=== PATIENT | female | born 1940 | race Caucasian/White ===

== ENCOUNTER 2020-06-09 06:35 | Inpatient (IN) ==
--- NOTE | 2020-05-05 15:25 | PAT Medication Instructions ---
Medication Instructions Date of Service May 05, 2020 Home Medications B-complex with vitamin C [Nephro-Dianna] 1 tab PO QAM apixaban [Eliquis] 2.5 mg PO BID cholecalciferol (vitamin D3) [Vitamin D3] 25 mcg PO QAM cinacalcet [Sensipar] 60 mg PO QAM colesevelam [WelChol] 1,250 mg PO BID labetalol 200 mg PO BID levothyroxine 125 mcg PO QAM nitroglycerin [Nitrostat] 0.4 mg BUCCAL UD ondansetron HCl [Zofran] 4 mg PO Q6H PRN pantoprazole [Protonix] 40 mg PO QAM sevelamer carbonate [Renvela] 2,400 mg PO BIDM sucroferric oxyhydroxide 500 mg PO UD temazepam 15 mg PO HS PRN Continue as directed nitroglycerin [Nitrostat] 0.4 mg BUCCAL UD (if needed) ASK your prescriber and surgeon apixaban [Eliquis] 2.5 mg PO BID STOP taking 48 hours before surgery colesevelam [WelChol] 1,250 mg PO BID DO NOT take the morning of surgery B-complex with vitamin C [Nephro-Dianna] 1 tab PO QAM cholecalciferol (vitamin D3) [Vitamin D3] 25 mcg PO QAM cinacalcet [Sensipar] 60 mg PO QAM sevelamer carbonate [Renvela] 2,400 mg PO BIDM sucroferric oxyhydroxide 500 mg PO UD Take morning of surgery With a small sip of water, OTHERWISE NOTHING TO EAT OR DRINK AFTER MIDNIGHT: labetalol 200 mg PO BID levothyroxine 125 mcg PO QAM ondansetron HCl [Zofran] 4 mg PO Q6H PRN (if needed) pantoprazole [Protonix] 40 mg PO QAM Take evening before surgery labetalol 200 mg PO BID ondansetron HCl [Zofran] 4 mg PO Q6H PRN (if needed) sevelamer carbonate [Renvela] 2,400 mg PO BIDM sucroferric oxyhydroxide 500 mg PO UD temazepam 15 mg PO HS PRN (if needed) Other Notes If you have any questions please call us at [phone] or [phone] or [phone] or [phone]
--- NOTE | 2020-05-06 13:38 | Anesthesiology Consultation ---
Date of Service May 06, 2020 Assessment & Plan (1) Encounter for pre-operative examination: Chart Review Chart Review: Pending: Refer to Additional Notes / Consult section (pending pacer check, possible cath report, carotid studies, most recent cardio note, 05/12 stress test and preop Covid testing ) and Patient seen in Pre Admission Testing Awaiting most recent pacer check and cath (from cardio office), carotid studies (Dr. Maurice office), most recent cardio note, and stress test scheduled 05/12 -Check PRP stat AM of surgery secondary to dialysis Novocaine allergy- surgeon's office was made aware. OR office also made aware via OR sheet Per PAT appt on 05/04/20, patient resides in [facility]. No recent travel. Uses PPE. No known Covid positive contacts or Covid related symptoms. Pt scheduled 05/10/20 for Covid testing. Educated on importance of self quarantining, social distancing and wearing mask in public both for the patient and household contacts. Teaching & Discussion Pre-Anesthesia Teaching/Discussion Notes: Instructed NPO after midnight before surgery,except medications with 15 cc of water. Medication instructions provided according to the PAT guidelines. History Surgery Operation Date: 05/14/20 07:30 Proposed Procedures p Percutaneous Endovascular Aneurysm Repair - Enrrique Maurice MD Height/Weight Height: 5 ft 2 in Weight: 53.4 kg Allergies Allergy/AdvReac Type Severity Reaction Status Date / Time amlodipine [From Norvasc] Allergy Mild leg and Verified 05/06/20 13:48 hand swelling clonidine Allergy Mild hallucinati Verified 05/04/20 13:24 on niacin Allergy Mild Hives Verified 05/04/20 13:14 procaine [From Novocain] Allergy Mild increase Verified 05/04/20 13:24 blood pressure and heart races Zowvqdm-Tlb-Eiq Reductase Allergy Mild pain in Verified 05/04/20 13:14 Inhibitor muscles Sulfa (Sulfonamide Allergy Mild Nausea Verified 05/04/20 13:14 Antibiotics) promethazine [From Phenergan] Allergy Unknown Confusion/word Verified 05/06/20 13:48 slurring contrast dye Allergy Mild chest pain Uncoded 05/04/20 13:14 and sob, rapid heart beat Medications Home Medications Medication Instructions Recorded Confirmed Last Taken B-complex with vitamin C 1 tab PO QAM 05/04/20 05/04/20 Unknown [Nephro-Dianna] apixaban [Eliquis] 2.5 mg PO BID 05/04/20 05/04/20 Unknown cholecalciferol (vitamin D3) 25 mcg PO QAM 05/04/20 05/04/20 Unknown [Vitamin D3] cinacalcet [Sensipar] 60 mg PO QAM 05/04/20 05/04/20 Unknown colesevelam [WelChol] 1,250 mg PO BID 05/04/20 05/04/20 Unknown labetalol 200 mg PO BID 05/04/20 05/04/20 Unknown levothyroxine 125 mcg PO QAM 05/04/20 05/04/20 Unknown nitroglycerin [Nitrostat] 0.4 mg BUCCAL UD 05/04/20 05/04/20 Unknown ondansetron HCl [Zofran] 4 mg PO Q6H PRN 05/04/20 05/04/20 Unknown pantoprazole [Protonix] 40 mg PO QAM 05/04/20 05/04/20 Unknown sertraline [Zoloft] 50 mg PO QAM 05/04/20 05/04/20 Unknown sevelamer carbonate [Renvela] 2,400 mg PO BIDM 05/04/20 05/04/20 Unknown sucroferric oxyhydroxide 500 mg PO UD 05/04/20 05/04/20 Unknown temazepam 15 mg PO HS PRN 05/04/20 05/04/20 Unknown Past Medical History Medical History (Updated 05/06/20 @ 16:19 by Danae Nye PA-C) Aortic valve stenosis Per 05/2018 ECHO- mild Atrial fibrillation Began after CABG surgery- on Eliquis currently CAD (coronary artery disease) S/p 3 vessel CABG in 2017, later had 2 stents in 2018 GERD (gastroesophageal reflux disease) Well controlled and stable- unless meds taken on empty stomach History of pacemaker Placed after 3 vessel CABG in 2017 Hyperlipidemia Hypertension Hypothyroidism Kidney failure on dialysis (PD) every night at home Osteoarthritis TIA (transient ischemic attack) Found tia x 3 on brain scan in 2018 after fall- no issues recently Exercise / Class Metabolic Activity III < 4 Walking/Shop/Light housework (mild SOB but no chest pain with flat surface ambulation- decreased activity since recent hip fracture/BEAN (Mar 2020)) Past Surgical History Surgical History History of coronary artery bypass graft x 3 vessel 2017 went into cardiac arrest and needed pacemaker - dea jiménez, follow with dr islas History of hip replacement 03/2020 - left History of intestinal surgery 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 follow with Dr Keyes in [place] Past Anesthesia History No Hx of Anesthesia Complications (slow to wake- no hx of reintubation or ICU stay with exception to CABG sx ) and No Family Hx of Anesthesia Complications (none known ) History of PONV No Hx of Motion Sickness and History of PONV (many years ago ) Social History Smoking Status: Never smoker Do You Dip or Chew Tobacco: No Hx Alcohol Use: No Hx Substance Use: No substance use type: does not use Review of Systems Chest pressure with recent chest CT scan (scheduled for stress test 05/12/20) Occ snoring- no significant witnessed apnea. No hx of sleep study Hx of blood transfusion secondary to surgery Patient denies chest pain, shortness of breath at rest, cough, wheezing, palpitations. No hx of seizures. No hx of blood clots. Physical Exam Vital Signs VITALS BP 141/63 P 64 TEMP 98.4 [id number]% RESP 16 Constitutional no acute distress ENMT Mouth: no TMJ clicking Thyromental Distance: > or= 3.5 Finger Breadths (3.5) Mallampati Class: III Crowns to top front teeth and right side top teeth Denies missing teeth Neck + limited neck extension (moderate to severe ) Respiratory normal respiratory effort; no respiratory distress Auscultation: lungs clear to auscultation bilaterally; no wheezes Cardiovascular Rate/Rhythm: regular rate and regular rhythm Heart Sounds: + murmur (IV/ murmur ) Vessels: + carotid bruit (bilateral carotid bruits vs radiation murmur ) Musculoskeletal Spine: no pain with cervical ROM Neurologic moves all extremities Psychiatric Orientation: alert Testing Laboratory Results 05/06/20 14:15 05/06/20 14:15 PT 11.3 Seconds (9.0-12.0) 05/06/20 14:15 INR 1.1 (0.9-1.1) 05/06/20 14:15 APTT 29.9 Seconds (21.0-31.0) 05/06/20 14:15 Blood Type A Positive 05/06/20 14:15 Antibody Screen NEGATIVE 05/06/20 14:15 Anemia- chronic and stable from previous labs Chronic hypokalemia- relatively stable from previous- on daily PD Electrocardiogram Date: 05/06/20 Atrial paced rhythm with prolonged AV conduction at 63 bpm. Chest X-Ray Date: 04/30/20 Stable chest- stable left basilar streaky opacity. Stable findings consistent with prior median sternotomy and CABG. Right upper chest pacemaker and leads are stable. No pleural effusion. Calcified breast implants. Echocardiogram Date: 05/18/18 EF: 61% Mild basal inferior and infero-septal HK. Degenerative aortic valve disease with mild stenosis- mean gradient 10mmHg. LIAT= 1.28cm2. Peaked AV velocity 2.07 m/s Intracardiac electrode in RA and RV. "Pseudo-normalization" of mitral inflow suggests diastolic dysfunction and/or volume overload. Mild TR with moderate pulm HTN, RVSP 43mmHg. Stress Test Date: 11/22/15 Type: nuclear No EKG criteria for ischemia. Myocardial perfusion imaging is normal. Myocardial ischemia and infarct is absent. EF= 69%. Wall motion is normal.
[2020-05-06 15:01] LABS: Basophils # (auto) 0.03 K/uL (0-0.2); Basophils % (auto) 0.5 %; Eosinophils # (auto) 0.16 K/uL (0-0.5); Eosinophils % (auto) 2.6 %; Hemoglobin 8.7 g/dL (12.0-16.0); Immature Granulocytes # (auto) 0.03 K/uL (0.00-0.02); Immature Granulocytes % (auto) 0.5 %; Lymphocytes # (auto) 0.51 K/uL (1.2-3.4); Lymphocytes % (auto) 8.4 %; Mean Corpuscular Hemoglobin 30.6 pg (25-34); Mean Corpuscular Hgb Conc 33.5 g/dL (32-36); Mean Corpuscular Volume 91.5 fL (80-100); Mean Platelet Volume 9.2 fL (7.4-10.4); Monocytes # (auto) 0.52 K/uL (0.11-0.59); Monocytes % (auto) 8.6 %; Neutrophils # (auto) 4.79 K/uL (1.4-6.5); Neutrophils % (auto) 79.4 %; Platelet Count 220 K/uL (130-400); RDW Coefficient of Variation 13.3 % (11.5-14.5); RDW Standard Deviation 44.6 fL (36.4-46.3); Red Blood Count 2.84 M/uL (4.2-5.4); White Blood Count 6.04 K/uL (4.8-10.8)
[2020-05-06 15:18] LABS: INR 1.1 (0.9-1.1); Partial Thromboplastin Ratio 1.1; Partial Thromboplastin Time 29.9 Seconds (21.0-31.0); Prothrombin Time 11.3 Seconds (9.0-12.0)
[2020-05-06 15:39] LABS: BUN Creatinine Ratio 4.4 (10-20); Creatinine Clr Calc Pharmacy 3.7 ml/min; Est GFR (African American) 4.1; Est GFR (Non-African American) 3.5; Potassium 2.9 mmol/L (3.5-5.1)
--- NOTE | 2020-05-07 06:13 | Electrocardiogram Report ---
Test Reason : Blood Pressure : / mmHG Vent. Rate : 063 BPM Atrial Rate : 064 BPM P-R Int : 254 ms QRS Dur : 094 ms QT Int : 470 ms P-R-T Axes : 074 039 083 degrees QTc Int : 480 ms Atrial-paced rhythm with prolonged AV conduction Abnormal ECG No previous ECGs available Confirmed by Duy Duffy ([id number]) on 05/07/2020 6:12:29 AM Referred By: Enrrique Maurice Confirmed By:Duy Duffy
[~2020-06-09 06:35] MED LIST: HYDROCORTISONE SOD SUCCINATE 100 MG/2 ML VIAL IV SCH; SODIUM CHLORIDE 0.9% 1000ML 1,000 ML IV SCH; ceFAZolin 1000MG 1,000 MG/7.5 ML SYR IV SCH
--- NOTE | 2020-06-09 07:24 | History & Physical Report ---
Date of Service June 09, 2020 Assessment & Plan (1) AAA (abdominal aortic aneurysm) without rupture: Patient admitted for PEVAR of her AAA. I have discussed the risks options and benefits of the procedure with the patient. The patient understands the risks options and benefits and agrees to the procedure. History of Present Illness Chief Complaint: AAA Primary Care Provider: Jorge Keyes MD As you know she is an 80-year-old white female on peritoneal dialysis. She was found to have a abdominal aortic aneurysm which is enlarged over the last 2 years. Ultrasound showed it to be 5.3. She had a CT angiogram done at [facility]. This was read as 4.8 cm abdominal aortic aneurysm however when looking at the films and doing the measurements the largest diameter of the sac is actually 5.3 x 5.3. Physical Exam Allergies Allergy/AdvReac Type Severity Reaction Status Date / Time amlodipine [From Norvasc] Allergy Mild leg and Verified 06/09/20 07:08 hand swelling clonidine Allergy Mild hallucinati Verified 06/09/20 07:08 on niacin Allergy Mild Hives Verified 06/09/20 07:08 procaine [From Novocain] Allergy Mild increase Verified 06/09/20 07:08 blood pressure and heart races Uxriqsm-Sdo-Zrt Reductase Allergy Mild pain in Verified 06/09/20 07:08 Inhibitor muscles Sulfa (Sulfonamide Allergy Mild Nausea Verified 06/09/20 07:08 Antibiotics) promethazine [From Phenergan] Allergy Unknown Confusion/word Verified 06/09/20 07:08 slurring contrast dye Allergy Mild chest pain Uncoded 06/09/20 07:08 and sob, rapid heart beat Home Medications Home Medications Medication Instructions Recorded Confirmed Type B-complex with vitamin C 1 tab PO QAM 05/04/20 05/04/20 History [Nephro-Dianna] apixaban [Eliquis] 2.5 mg PO BID 05/04/20 06/09/20 History cholecalciferol (vitamin D3) 25 mcg PO QAM 05/04/20 05/04/20 History [Vitamin D3] cinacalcet [Sensipar] 60 mg PO QAM 05/04/20 06/09/20 History colesevelam [WelChol] 1,250 mg PO BID 05/04/20 06/09/20 History labetalol 200 mg PO BID 05/04/20 05/04/20 History levothyroxine 125 mcg PO QAM 05/04/20 05/04/20 History nitroglycerin [Nitrostat] 0.4 mg BUCCAL UD 05/04/20 05/04/20 History ondansetron HCl [Zofran] 4 mg PO Q6H PRN 05/04/20 05/04/20 History pantoprazole [Protonix] 40 mg PO QAM 05/04/20 05/04/20 History sertraline [Zoloft] 50 mg PO QAM 05/04/20 06/09/20 History sevelamer carbonate [Renvela] 2,400 mg PO BIDM 05/04/20 06/09/20 History sucroferric oxyhydroxide 500 mg PO UD 05/04/20 06/09/20 History temazepam 15 mg PO HS PRN 05/04/20 06/09/20 History Past Med/Surg History Medical History Aortic valve stenosis Per 05/2018 ECHO- mild Atrial fibrillation Began after CABG surgery- on Eliquis currently CAD (coronary artery disease) S/p 3 vessel CABG in 2017, later had 2 stents in 2018 GERD (gastroesophageal reflux disease) Well controlled and stable- unless meds taken on empty stomach History of pacemaker Placed after 3 vessel CABG in 2016 Hyperlipidemia Hypertension Hypothyroidism Kidney failure on dialysis (PD) every night at home Osteoarthritis TIA (transient ischemic attack) Found tia x 3 on brain scan in 2018 after fall- no issues recently Surgical History History of coronary artery bypass graft x 3 vessel 2017 went into cardiac arrest and needed pacemaker - dea jiménez, follow with dr islas History of hip replacement 03/2020 - left History of intestinal surgery 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 follow with Dr Keyes in [place] Social History Smoking Status: Never smoker Second Hand Exposure: No; Do You Dip or Chew Tobacco: No; Tobacco Cessation Education Requested by Patient: No Hx Alcohol Use: No Hx Substance Use: No Preferred Language: Polish Communication Ability: Effective Golf Club Repairer Required: No Beliefs That Will Affect Care: None Current Living Situation: Significant Other Other Information That Helps Us Care for You: No Feels Safe at Home: Yes Safety Concerns: Feels Safe At This Time Assistive Devices: Glasses Review of Systems All systems reviewed & are unremarkable except as noted in HPI & below Physical Exam Physical Exam: She is well-appearing, well-nourished, in no acute distress. She is breathing comfortably on room air. Lungs are clear. Her heart has a regular rate and rythm. Her abdomen is soft, nontender and nondistended. There is a palpable pulsatile abdominal mass. This is nontender. There is a PD catheter in place. Her bilateral femoral pulses are palpable. Her bilateral dorsalis pedis pulses are palpable bilaterally. Her motor and sensory examinations of the bilateral upper and lower extremities are grossly intact.
[2020-06-09 07:51] LABS: BUN Creatinine Ratio 3.8 (10-20); Calcium 8.3 mg/dl (8.5-10.1); Creatinine Clr Calc Pharmacy 4.1 ml/min; Est GFR (African American) 4.7; Potassium 2.7 mmol/L (3.5-5.1)
[2020-06-09] MEDS ORDERED: MIDAZOLAM HCL 1 MG/ML 2ML VIAL ONE (07:57)
[2020-06-09] MEDS ORDERED: fentaNYL citrate 100 MCG/2 ML VIAL ONE (07:57)
[2020-06-09] MEDS ORDERED: HEPARIN SOD (PORCINE) 1000 UNIT/ML 10 ML VIAL ONE (07:57)
[2020-06-09] MEDS ORDERED: LIDOCAINE HCL 2% 2 ML VIAL/AMP(20MG/ML) INFIL ONE (07:57)
[2020-06-09] MEDS ORDERED: CISATRACURIUM BESYLATE IV SOLN 2 MG/ML 10 ML VIAL IV ONE (07:57)
[2020-06-09] MEDS ORDERED: PROPOFOL IV EMULSION 10 MG/ML 20 ML VIAL IV ONE ×3 (07:57→10:45)
[2020-06-09] MEDS ORDERED: ALBUMIN HUMAN 5% 12.5 GM/250 ML VIAL IV ONE (08:21)
[2020-06-09] MEDS: POTASSIUM CHLORIDE / WTR 10 MEQ/100 ML PLCT IV SCH ×4 (08:22→18:42)
[2020-06-09] MEDS ORDERED: LIDOCAINE HCL 1% 20 ML VIAL ONE (08:51)
[2020-06-09] MEDS ORDERED: KETAMINE 50 MG/5 ML SYRINGE ONE (09:05)
[2020-06-09] MEDS ORDERED: ARISTA ABSORBABLE HEMOSTAT 3GM TOP ONE (10:13)
[2020-06-09] MEDS ORDERED: VISIPAQUE IV PRN (10:17)
--- NOTE | 2020-06-09 10:39 | Post Operative Brief Note ---
Immediate Post Op Note v1 Date of Surgery June 09, 2020 Pre & Post Diagnosis Operation Date: 05/14/20 08:50 <No data on this case meets the specified criteria> Operation Date: 06/09/20 08:00 <No data on this case meets the specified criteria> Operation Date: 06/09/20 08:00 Pre-Op Diagnosis: Abdominal Aortic Aneurysm Post-Op Diagnosis: Abdominal Aortic Aneurysm I identified the patient and participated in the time-out.: Yes Procedure Operation Date: 05/14/20 08:50 <No data on this case meets the specified criteria> Operation Date: 06/09/20 08:00 <No data on this case meets the specified criteria> Operation Date: 06/09/20 08:00 Actual Procedures p Percutaneous Endovascular Aneurysm Repair, Bilateral Percutaneous Groin Acess(Bilateral) - Enrrique Maurice MD Surgeon Enrrique Maurice MD Training Associate Hallie,PAC Estimated Blood Loss 30 Findings Consistent with Post-Op Diagnosis Anesthesia Type MAC Complications none Disposition Accompanied Patient To Recovery: No Disposition: Recovery Room
[2020-06-09] MEDS ORDERED: NITROGLYCERIN 5 MG/ML 10 ML VIAL ONE (10:46)
[2020-06-09 10:51] LABS: iSTAT Creatinine 8.1 mg/dl (0.6-1.3); iSTAT Hemoglobin 8.5 g/dl (12.0-16.0); iSTAT Ionized Calcium 1.03 mmol/l (1.12-1.32); iSTAT Potassium 3.2 mmol/L (3.3-5.0)
[2020-06-09] MEDS ORDERED: ATROPINE SULFATE 0.1 MG/ML 10ML SYR IV PRN (10:56)
[2020-06-09] MEDS ORDERED: ONDANSETRON INJ 2 MG/ML 2 ML VIAL IV PRN (10:56)
[2020-06-09] MEDS ORDERED: ePHEDrine sulfate 50 MG/ML AMP IV PRN (10:56)
[2020-06-09] MEDS ORDERED: fentaNYL citrate 100 MCG/2 ML VIAL IV PRN (10:56)
[2020-06-09] MEDS ORDERED: FLUMAZENIL 0.1 MG/1 ML 10 ML VIAL IV PRN (10:56)
[2020-06-09] MEDS ORDERED: NALOXONE HCL 0.4 MG/1 ML VIAL/CARP IV PRN (10:56)
[2020-06-09] MEDS ORDERED: LABETALOL HCL IV 5 MG/ML 20ML IV PRN (10:56)
[2020-06-09 11:14] LABS: Basophils # (auto) 0.02 K/uL (0-0.2); Basophils % (auto) 0.3 %; Eosinophils # (auto) 0.02 K/uL (0-0.5); Eosinophils % (auto) 0.3 %; Hematocrit (blood only) 28.8 % (37-47); Hemoglobin 9.3 g/dL (12.0-16.0); Immature Granulocytes # (auto) 0.03 K/uL (0.00-0.02); Immature Granulocytes % (auto) 0.4 %; Lymphocytes # (auto) 0.66 K/uL (1.2-3.4); Lymphocytes % (auto) 9.2 %; Mean Corpuscular Hemoglobin 29.6 pg (25-34); Mean Corpuscular Volume 91.7 fL (80-100); Mean Platelet Volume 9.5 fL (7.4-10.4); Monocytes # (auto) 0.13 K/uL (0.11-0.59); Monocytes % (auto) 1.8 %; Platelet Count 229 K/uL (130-400); RDW Coefficient of Variation 14.4 % (11.5-14.5); RDW Standard Deviation 47.5 fL (36.4-46.3); Red Blood Count 3.14 M/uL (4.2-5.4); White Blood Count 7.16 K/uL (4.8-10.8)
[2020-06-09 11:20] LABS: Mean Corpuscular Hgb Conc 32.3 g/dL (32-36)
--- NOTE | 2020-06-09 11:46 | Anesthesiology Progress Note ---
Date of Service June 09, 2020 Anesthesia Post Procedure Vital Signs Vital Signs: Temp Pulse Pulse Resp BP BP BP 06/09/20 11:25 74 15 152/73 H 154/60 H 06/09/20 11:15 72 15 161/79 H 162/64 H 06/09/20 11:05 72 15 168/80 H 162/63 H 06/09/20 10:55 71 14 162/82 H 158/67 H 06/09/20 10:45 71 13 163/75 H 146/76 H 06/09/20 10:35 36.5 C 70 12 154/79 H 140/62 06/09/20 07:27 36.8 C 64 18 149/76 H Pulse Ox 06/09/20 11:25 95 06/09/20 11:15 98 06/09/20 11:05 98 06/09/20 10:55 100 06/09/20 10:45 100 06/09/20 10:35 96 06/09/20 07:27 97 Pain Intensity Bilateral Groin: Pain Intensity: 5 Transfer of Care Handoff Completed per policy Notes Mental Status: alert / awake / arousable Patient Amnestic to Procedure: Yes Nausea / Vomiting: adequately controlled Pain: adequately controlled Airway Patency, RR, SpO2: stable & adequate BP & HR: stable & adequate Hydration State: stable & adequate Anesthetic Complications: no major complications apparent
[2020-06-09 11:57] LABS: Calcium 7.4 mg/dl (8.5-10.1); Creatinine Clr Calc Pharmacy 4.3 ml/min; Est GFR (Non-African American) 4.3; Potassium 3.3 mmol/L (3.5-5.1)
[2020-06-09] MEDS ORDERED: ONDANSETRON 4 MG OD TAB PO PRN (12:59)
[2020-06-09] MEDS ORDERED: NITROGLYCERIN SL 0.4 MG/TAB TAB SL SCH (13:00)
[2020-06-09] MEDS ORDERED: MoRPHine SULFATE 4 MG/ML 1 ML CARP\\VIAL IV PRN (13:00)
--- NOTE | 2020-06-09 13:02 | Critical Care Consultation ---
Date of Consultation June 09, 2020 Assessment & Plan (1) Admitted to intensive care unit: --Abdominal aortic aneurysm s/p repair Maintain systolic blood pressure less than 150 Monitor H&H Monitor for bilateral lower extremity pulses Pain medication Vascular on board --Hypertension Continue with home medication Add amlodipine if need be --History of A. fib On apixaban --End-stage renal disease On hemodialysis Nephrology on board --Hypothyroidism Continue with levothyroxine --GERD Continue with pantoprazole --Hypokalemia Being replaced --Prophylaxis VTE: Apixaban GI: Pantoprazole Lines: Right radial, [place] Diet: Cardiorenal Plan: Monitor H&H Keep systolic blood pressure less than 150 Pain control Incentive spirometry Please note the above document was generated using voice recognition software. It may contain grammatical, syntax or spelling errors.Any formal questions or concerns about the content, text or information contained within the body of this dictation should be directly addressed to the provider for clarification. (2) Hypertension: (3) AAA (abdominal aortic aneurysm) without rupture: (4) End stage renal disease: History of Present Illness Attending Physician: Enrrique Maurice MD History of Present Illness 80-year-old female with past medical history of abdominal aortic aneurysm, hypertension, A. fib on apixaban, end-stage renal disease on peritoneal dialysis presented to the hospital for abdominal aortic aneurysm repair. Procedure was done by Dr. Maurice. Patient is in the ICU for postop care. At the time of examination patient denies any complaints of headache, no dizziness, no nausea or vomiting. No chest pain, no shortness of breath. Patient was having dinner at the time of examination. Patient denies any dizziness. She does complain of pain in the right groin area which is mild. She is not asking for any medications for it. Social history: Non-smoker, no illicit drug use, no alcohol use Allergies Allergy/AdvReac Type Severity Reaction Status Date / Time amlodipine [From Norvasc] Allergy Mild leg and Verified 06/09/20 07:08 hand swelling clonidine Allergy Mild hallucinati Verified 06/09/20 07:08 on niacin Allergy Mild Hives Verified 06/09/20 07:08 procaine [From Novocain] Allergy Mild increase Verified 06/09/20 07:08 blood pressure and heart races Tyadsxo-Ery-Syb Reductase Allergy Mild pain in Verified 06/09/20 07:08 Inhibitor muscles Sulfa (Sulfonamide Allergy Mild Nausea Verified 06/09/20 07:08 Antibiotics) promethazine [From Phenergan] Allergy Unknown Confusion/word Verified 06/09/20 07:08 slurring contrast dye Allergy Mild chest pain Uncoded 06/09/20 07:08 and sob, rapid heart beat Home Medications Home Medications Medication Instructions Recorded Confirmed Type B-complex with vitamin C 1 tab PO QAM 05/04/20 05/04/20 History [Nephro-Dianna] apixaban [Eliquis] 2.5 mg PO BID 05/04/20 06/09/20 History cholecalciferol (vitamin D3) 25 mcg PO QAM 05/04/20 05/04/20 History [Vitamin D3] cinacalcet [Sensipar] 60 mg PO QAM 05/04/20 06/09/20 History colesevelam [WelChol] 1,250 mg PO BID 05/04/20 06/09/20 History labetalol 200 mg PO BID 05/04/20 05/04/20 History levothyroxine 125 mcg PO QAM 05/04/20 05/04/20 History nitroglycerin [Nitrostat] 0.4 mg BUCCAL UD 05/04/20 05/04/20 History ondansetron HCl [Zofran] 4 mg PO Q6H PRN 05/04/20 05/04/20 History pantoprazole [Protonix] 40 mg PO QAM 05/04/20 05/04/20 History sertraline [Zoloft] 50 mg PO QAM 05/04/20 06/09/20 History sevelamer carbonate [Renvela] 2,400 mg PO BIDM 05/04/20 06/09/20 History sucroferric oxyhydroxide 500 mg PO UD 05/04/20 06/09/20 History temazepam 15 mg PO HS PRN 05/04/20 06/09/20 History Patient History Medical History Aortic valve stenosis Per 05/2018 ECHO- mild Atrial fibrillation Began after CABG surgery- on Eliquis currently CAD (coronary artery disease) S/p 3 vessel CABG in 2017, later had 2 stents in 2018 GERD (gastroesophageal reflux disease) Well controlled and stable- unless meds taken on empty stomach History of pacemaker Placed after 3 vessel CABG in 2017 Hyperlipidemia Hypertension Hypothyroidism Kidney failure on dialysis (PD) every night at home Osteoarthritis TIA (transient ischemic attack) Found tia x 3 on brain scan in 2018 after fall- no issues recently Surgical History History of coronary artery bypass graft x 3 vessel 2017 went into cardiac arrest and needed pacemaker - dea jiménez, follow with dr islas History of hip replacement 03/2020 - left History of intestinal surgery 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 follow with Dr Keyes in [place] Social History Smoking Status: Never smoker Second Hand Exposure: No; Do You Dip or Chew Tobacco: No; Tobacco Cessation Education Requested by Patient: No Hx Alcohol Use: No Hx Substance Use: No Preferred Language: Yi Communication Ability: Effective Mat Inspector Required: No Beliefs That Will Affect Care: None Current Living Situation: Significant Other Other Information That Helps Us Care for You: No Feels Safe at Home: Yes Safety Concerns: Feels Safe At This Time Assistive Devices: Glasses Review of Systems Review of Systems: All systems reviewed & are unremarkable except as noted in HPI & below Physical Exam Physical Exam: Constitutional: No acute distress HEENT: EOMI, PERRLA Respiratory system: Decreased air entry bilaterally, mild crackles bilateral lower lobes, no wheeze, no rhonchi CVS: S1-S2 positive, positive 3 out of 6 systolic murmur appreciated best at the aorta Abdomen: Soft, nontender, nondistended, positive bowel sounds x4 Extremities: +2 pulses bilaterally radialis/ dorsalis pedis, no cyanosis, no edema Neuro: Awake alert oriented x3 Psych: Normal mood and affect G/U: Positive [place] Skin: no rashes, warm and dry Lymphatic: no cervical or axillary lymphadenopathy Results & Data Results & Data ([place]) Vital Signs (Past 12 Hours) Vital Signs Temp Pulse Pulse Pulse Resp BP BP 06/09/20 12:30 36.5 C 75 22 145/64 H 06/09/20 11:45 73 16 06/09/20 11:35 36.5 C 74 15 06/09/20 11:25 74 15 06/09/20 11:15 72 15 06/09/20 11:05 72 15 06/09/20 10:55 71 14 06/09/20 10:45 71 13 06/09/20 10:35 36.5 C 70 12 06/09/20 07:27 36.8 C 64 18 149/76 H BP BP Pulse Ox 06/09/20 12:30 97 06/09/20 11:45 152/83 H 144/68 H 96 06/09/20 11:35 162/78 H 169/72 H 95 06/09/20 11:25 152/73 H 154/60 H 95 06/09/20 11:15 161/79 H 162/64 H 98 06/09/20 11:05 168/80 H 162/63 H 98 06/09/20 10:55 162/82 H 158/67 H 100 06/09/20 10:45 163/75 H 146/76 H 100 06/09/20 10:35 154/79 H 140/62 96 06/09/20 07:27 97 06/09/20 11:00 06/09/20 11:00 Coding Level of Care Code 59712 Inpt Consult Level 3 Diagnoses Admitted to intensive care unit Z78.9 Hypertension I10 AAA (abdominal aortic aneurysm) without rupture I71.4 End stage renal disease N18.6
[2020-06-09] MEDS: SEVELAMER HCL 800 MG TABLET PO SCH ×2 (16:41→16:43)
[2020-06-09] MEDS: LABETALOL HCL 200 MG TAB PO SCH (16:41)
[2020-06-09] MEDS: ceFAZolin 1000MG 1,000 MG/7.5 ML SYR IV SCH (16:42)
[2020-06-09 17:40] LABS: Hematocrit (blood only) 29.7 % (37-47); Hemoglobin 9.8 g/dL (12.0-16.0)
--- NOTE | 2020-06-09 17:47 | XRay Report ---
XR chest 1V portable HISTORY: Atypical chest pain. COMPARISON: None. FINDINGS: No pneumothorax. No pleural effusions. A few bibasilar linear densities which favor subsegm ental atelectasis. The heart is normal in size. There are poststernotomy changes. No focal lung conso lidations to suggest pneumonia. No evidence for pulmonary edema. There is a right-sided dual-chamber pacemaker. There appears to be trace pneumoperitoneum. However, this remains unchanged compared the p rior abdomen and pelvis CT and is likely due to the patient's indwelling peritoneal catheter. Partial ly visualized abdominal aortic stent is noted. The bones are osteopenic. Calcified bilateral breast i mplants are present. IMPRESSION: 1. No acute process within the chest. 2. A few bibasilar linear densities likely representing subsegmental atelectasis. 3. Trace pneumoperitoneum, unchanged. This is likely due to the patient's indwelling peritoneal albino ter as seen on the prior abdomen and pelvis CT. ACT 112: Negative or not required by law. Electronically signed by: Cruz Triplett M.D. 06/09/2020 5:46 PM
--- NOTE | 2020-06-09 18:04 | Nephrology Consultation ---
Date of Consultation June 09, 2020 Assessment & Plan (1) End stage renal disease: No emergent indication for PD tonight. BP and volume status are acceptable. Electrolytes controlled. Debra is receiving potassium supplementation for hypokalemia. Will hold treatment overnight. Medications are appropriately dosed for kidney function. Resume CCPD tomorrow. (2) Hypertension: Improving with labetalol. No additional treatment necessary. Volume status acceptable. (3) Chronic kidney disease-mineral and bone disorder: Renvela QAC while inpatient. May hold Sensipar during hospitalization. (4) AAA (abdominal aortic aneurysm) without rupture: s/p endovascular repair without complications. (5) Admitted to intensive care unit: History of Present Illness Reason for Consultation: ESRD on PD Requesting Physician: Enrrique Maurice MD Attending Physician: Enrrique Maurice MD History of Present Illness Debra Summers is an 80-year-old female with ESRD who has been on peritoneal dialysis under the care of Dr. Jorge Keyes for the past 11 years. Debra denies any complications with dialysis. She performed, CCPD QHS with 3-4 exchanges of 2.75 L w/ 1.5 dextrose using a 90 minute fill. UF typically less than 1 L QHS. EDW has been 117 lbs. Debra does not feel that she needs dialysis tonight. She is receiving potassium replacement in the ICU following percutaneous endovascular abdominal aortic aneurysm repair performed by Dr. Maurice today. The procedure was performed without complications. Bilateral groin access was used. Debra has no complaints or concerns following the procedure. There was no significant blood loss. 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 Debra was slightly hypotensive on my assessment but asymptomatic. She describes some chronic hypertension and describes difficulty tolerating low BP as well as multiple antihypertensives in the past. She is confident BP will improve with labetalol which had been recently administered. Allergies Allergy/AdvReac Type Severity Reaction Status Date / Time amlodipine [From [facility]] Allergy Mild leg and Verified 06/09/20 07:08 hand swelling clonidine Allergy Mild hallucinati Verified 06/09/20 07:08 on niacin Allergy Mild Hives Verified 06/09/20 07:08 procaine [From Novocain] Allergy Mild increase Verified 06/09/20 07:08 blood pressure and heart races Hlpomew-Ezl-Ztz Reductase Allergy Mild pain in Verified 06/09/20 07:08 Inhibitor muscles Sulfa (Sulfonamide Allergy Mild Nausea Verified 06/09/20 07:08 Antibiotics) promethazine [From Phenergan] Allergy Unknown Confusion/word Verified 06/09/20 07:08 slurring contrast dye Allergy Mild chest pain Uncoded 06/09/20 07:08 and sob, rapid heart beat Home Medications Home Medications Medication Instructions Recorded Confirmed Type B-complex with vitamin C 1 tab PO QAM 05/04/20 05/04/20 History [Nephro-Dianna] apixaban [Eliquis] 2.5 mg PO BID 05/04/20 06/09/20 History cholecalciferol (vitamin D3) 25 mcg PO QAM 05/04/20 05/04/20 History [Vitamin D3] cinacalcet [Sensipar] 60 mg PO QAM 05/04/20 06/09/20 History colesevelam [WelChol] 1,250 mg PO BID 05/04/20 06/09/20 History labetalol 200 mg PO BID 05/04/20 05/04/20 History levothyroxine 125 mcg PO QAM 05/04/20 05/04/20 History nitroglycerin [Nitrostat] 0.4 mg BUCCAL UD 05/04/20 05/04/20 History ondansetron HCl [Zofran] 4 mg PO Q6H PRN 05/04/20 05/04/20 History pantoprazole [Protonix] 40 mg PO QAM 05/04/20 05/04/20 History sertraline [Zoloft] 50 mg PO QAM 05/04/20 06/09/20 History sevelamer carbonate [Renvela] 2,400 mg PO BIDM 05/04/20 06/09/20 History sucroferric oxyhydroxide 500 mg PO UD 05/04/20 06/09/20 History temazepam 15 mg PO HS PRN 05/04/20 06/09/20 History Patient History Medical History Aortic valve stenosis Per 05/2018 ECHO- mild Atrial fibrillation Began after CABG surgery- on Eliquis currently CAD (coronary artery disease) S/p 3 vessel CABG in 2017, later had 2 stents in 2018 GERD (gastroesophageal reflux disease) Well controlled and stable- unless meds taken on empty stomach History of pacemaker Placed after 3 vessel CABG in 2017 Hyperlipidemia Hypertension Hypothyroidism Kidney failure on dialysis (PD) every night at home Osteoarthritis TIA (transient ischemic attack) Found tia x 3 on brain scan in 2018 after fall- no issues recently Surgical History History of coronary artery bypass graft x 3 vessel 2017 went into cardiac arrest and needed pacemaker - dea jiménez, follow with dr islas History of hip replacement 03/2020 - left History of intestinal surgery 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 follow with Dr Keyes in [place] Social History Smoking Status: Never smoker Second Hand Exposure: No; Do You Dip or Chew Tobacco: No; Tobacco Cessation Education Requested by Patient: No Hx Alcohol Use: No Hx Substance Use: No Preferred Language: Khmer Communication Ability: Effective Sr. Merchandise Planner Required: No Beliefs That Will Affect Care: None Current Living Situation: Significant Other Other Information That Helps Us Care for You: No Feels Safe at Home: Yes Safety Concerns: Feels Safe At This Time Assistive Devices: Glasses Review of Systems Review of Systems: All systems reviewed & are unremarkable except as noted in HPI & below Physical Exam Constitutional: well developed, + thin and + frail appearing; no acute distress and not edematous Eyes: + anicteric sclerae; no corneal abnormality ENMT: Mouth: no oral mucosal abnormality and oral mucous membranes not dry Neck: normal visual inspection and trachea midline Respiratory: normal respiratory effort Auscultation: lungs clear to auscultation bilaterally Cardiovascular: Rate/Rhythm: regular rate Heart Sounds: normal S1 and normal S2 Extremities: no edema Gastrointestinal (Abdomen): Percussion/Palpation: abdomen soft; abdomen nontender PD catheter intact with clean exit site Musculoskeletal: Extremities: no cyanosis and no clubbing Skin: normal turgor; no lesions Neurologic: Motor/Sensory: no tremor and no asterixis Psychiatric: Orientation: alert and oriented x 3 Results & Data ([facility]) Vital Signs (Past 12 Hours) Vital Signs Temp Pulse Pulse Pulse Resp BP BP 06/09/20 16:31 75 18 160/67 H 06/09/20 16:15 72 17 160/68 H 06/09/20 16:01 72 19 165/71 H 06/09/20 15:45 71 20 169/73 H 06/09/20 15:30 73 18 167/73 H 06/09/20 15:16 73 15 181/73 H 06/09/20 15:00 75 17 155/82 H 06/09/20 14:45 74 16 159/72 H 06/09/20 14:30 74 17 170/67 H 06/09/20 14:00 74 13 151/69 H 06/09/20 13:30 74 16 140/73 06/09/20 13:15 74 16 139/63 06/09/20 13:00 75 14 154/70 H 06/09/20 12:45 75 16 156/69 H 06/09/20 12:30 36.5 C 75 22 145/64 H 06/09/20 11:45 73 16 06/09/20 11:35 36.5 C 74 15 06/09/20 11:25 74 15 06/09/20 11:15 72 15 06/09/20 11:05 72 15 06/09/20 10:55 71 14 06/09/20 10:45 71 13 06/09/20 10:35 36.5 C 70 12 06/09/20 07:27 36.8 C 64 18 149/76 H BP BP Pulse Ox 06/09/20 16:31 98 06/09/20 16:15 97 06/09/20 16:01 99 06/09/20 15:45 99 06/09/20 15:30 98 06/09/20 15:16 98 06/09/20 15:00 98 06/09/20 14:45 94 06/09/20 14:30 97 06/09/20 14:00 97 06/09/20 13:30 97 06/09/20 13:15 94 06/09/20 13:00 96 06/09/20 12:45 94 06/09/20 12:30 97 06/09/20 11:45 152/83 H 144/68 H 96 06/09/20 11:35 162/78 H 169/72 H 95 06/09/20 11:25 152/73 H 154/60 H 95 06/09/20 11:15 161/79 H 162/64 H 98 06/09/20 11:05 168/80 H 162/63 H 98 06/09/20 10:55 162/82 H 158/67 H 100 06/09/20 10:45 163/75 H 146/76 H 100 06/09/20 10:35 154/79 H 140/62 96 06/09/20 07:27 97 Laboratory Results Laboratory Results - last 24 hr 06/09/20 06/09/20 06/09/20 06:45 06:45 07:04 WBC RBC Hgb POC Hgb Hct POC Hct MCV MCH MCHC RDW Std Deviation RDW Coeff of Zaid Plt Count MPV Immature Gran % (Auto) Neut % (Auto) Lymph % (Auto) [place] % (Auto) Eos % (Auto) Baso % (Auto) Neut # (Auto) Lymph # (Auto) [place] # (Auto) Eos # (Auto) Baso # (Auto) Immature Gran # (Auto) POC Sodium Sodium POC Potassium Potassium POC Chloride Chloride Carbon Dioxide POC Total CO2 Anion Gap POC Anion Gap POC BUN BUN Creatinine POC Creatinine Est Cr Clr Drug Dosing Est GFR ( Amer) Est GFR (Non-Af Amer) BUN/Creatinine Ratio Glucose POC Glucose (other) Calcium POC Ioniz Calcium Chrissie Nasal Screen MRSA (PCR) COVID-19 Eval Order Covid19 IDNow atMGAC SARS-CoV-2, RNA, NAAT NEGATIVE Blood Type A Positive Antibody Screen NEGATIVE Crossmatch See Detail 06/09/20 06/09/20 06/09/20 07:04 10:05 11:00 WBC 7.16 RBC 3.14 L Hgb 9.3 L POC Hgb 8.5 L Hct 28.8 L POC Hct 25 L MCV 91.7 MCH 29.6 MCHC 32.3 RDW Std Deviation 47.5 H RDW Coeff of Zaid 14.4 Plt Count 229 MPV 9.5 Immature Gran % (Auto) 0.4 Neut % (Auto) 88.0 Lymph % (Auto) 9.2 [place] % (Auto) 1.8 Eos % (Auto) 0.3 Baso % (Auto) 0.3 Neut # (Auto) 6.30 Lymph # (Auto) 0.66 L [place] # (Auto) 0.13 Eos # (Auto) 0.02 Baso # (Auto) 0.02 Immature Gran # (Auto) 0.03 H POC Sodium 133 L Sodium 135 L POC Potassium 3.2 L Potassium 2.7 L POC Chloride 96 L Chloride 98 Carbon Dioxide 26 POC Total CO2 23 L Anion Gap 11.0 POC Anion Gap 17.0 POC BUN 28 H BUN 32 H Creatinine 8.33 H* POC Creatinine 8.1 H* Est Cr Clr Drug Dosing 4.1 Est GFR ( Amer) 4.7 Est GFR (Non-Af Amer) 4.0 BUN/Creatinine Ratio 3.8 L Glucose 103 H POC Glucose (other) 98 Calcium 8.3 L POC Ioniz Calcium Chrissie 1.03 L Nasal Screen MRSA (PCR) COVID-19 Eval Order SARS-CoV-2, RNA, NAAT Blood Type Antibody Screen Crossmatch 06/09/20 06/09/20 06/09/20 11:00 13:44 17:33 WBC RBC Hgb POC Hgb Hct POC Hct MCV MCH MCHC RDW Std Deviation RDW Coeff of Zaid Plt Count MPV Immature Gran % (Auto) Neut % (Auto) Lymph % (Auto) [place] % (Auto) Eos % (Auto) Baso % (Auto) Neut # (Auto) Lymph # (Auto) [place] # (Auto) Eos # (Auto) Baso # (Auto) Immature Gran # (Auto) POC Sodium Sodium 134 L Pending POC Potassium Potassium 3.3 L D Pending POC Chloride Chloride 100 Pending Carbon Dioxide 24 Pending POC Total CO2 Anion Gap 10.0 Pending POC Anion Gap POC BUN BUN 32 H Pending Creatinine 7.91 H* D Pending POC Creatinine Est Cr Clr Drug Dosing 4.3 Pending Est GFR ( Amer) 5.0 Pending Est GFR (Non-Af Amer) 4.3 Pending BUN/Creatinine Ratio 4.0 L Pending Glucose 114 H Pending POC Glucose (other) Calcium 7.4 L Pending POC Ioniz Calcium Chrissie Nasal Screen MRSA (PCR) Negative COVID-19 Eval Order SARS-CoV-2, RNA, NAAT Blood Type Antibody Screen Crossmatch 06/09/20 17:33 WBC RBC Hgb 9.8 L POC Hgb Hct 29.7 L POC Hct MCV MCH MCHC RDW Std Deviation RDW Coeff of Zaid Plt Count MPV Immature Gran % (Auto) Neut % (Auto) Lymph % (Auto) [place] % (Auto) Eos % (Auto) Baso % (Auto) Neut # (Auto) Lymph # (Auto) [place] # (Auto) Eos # (Auto) Baso # (Auto) Immature Gran # (Auto) POC Sodium Sodium POC Potassium Potassium POC Chloride Chloride Carbon Dioxide POC Total CO2 Anion Gap POC Anion Gap POC BUN BUN Creatinine POC Creatinine Est Cr Clr Drug Dosing Est GFR ( Amer) Est GFR (Non-Af Amer) BUN/Creatinine Ratio Glucose POC Glucose (other) Calcium POC Ioniz Calcium Chrissie Nasal Screen MRSA (PCR) COVID-19 Eval Order SARS-CoV-2, RNA, NAAT Blood Type Antibody Screen Crossmatch PG Care Time/CCT Total # of Minutes Spent Total Time Spent with Patient: Total time spent is greater than 50% in coordi nation of care (as documented) at patient's floor/unit and/or counseling patient: Coding Level of Care Code 86949 Inpt Consult Level 4 Diagnoses End stage renal disease N18.6 Hypertension I10 Chronic kidney disease-mineral and bone disorder N18.9; E83.9; M89.9 AAA (abdominal aortic aneurysm) without rupture I71.4 Admitted to intensive care unit Z78.9
[2020-06-09 18:13] LABS: Calcium 7.7 mg/dl (8.5-10.1); Est GFR (African American) 4.6; Potassium 3.8 mmol/L (3.5-5.1)
[2020-06-09] MEDS ORDERED: TEMAZEPAM 15 MG CAPSULE PO PRN (21:00)
[2020-06-10] MEDS: oxyCODONE/ACETAMINOPHEN 5mg/325mg TAB PO PRN ×3 (00:20→23:25)
[2020-06-10] MEDS: ceFAZolin 1000MG 1,000 MG/7.5 ML SYR IV SCH (02:18)
[2020-06-10 04:29] LABS: Basophils # (auto) 0.04 K/uL (0-0.2); Basophils % (auto) 0.5 %; Eosinophils # (auto) 0.06 K/uL (0-0.5); Eosinophils % (auto) 0.7 %; Hematocrit (blood only) 26.2 % (37-47); Hemoglobin 8.4 g/dL (12.0-16.0); Immature Granulocytes # (auto) 0.02 K/uL (0.00-0.02); Immature Granulocytes % (auto) 0.2 %; Lymphocytes # (auto) 2.08 K/uL (1.2-3.4); Lymphocytes % (auto) 24.2 %; Mean Corpuscular Hemoglobin 29.3 pg (25-34); Mean Corpuscular Hgb Conc 32.1 g/dL (32-36); Mean Corpuscular Volume 91.3 fL (80-100); Mean Platelet Volume 9.8 fL (7.4-10.4); Monocytes # (auto) 1.19 K/uL (0.11-0.59); Monocytes % (auto) 13.8 %; Neutrophils # (auto) 5.21 K/uL (1.4-6.5); Neutrophils % (auto) 60.6 %; Platelet Count 228 K/uL (130-400); RDW Coefficient of Variation 14.6 % (11.5-14.5); RDW Standard Deviation 47.5 fL (36.4-46.3); Red Blood Count 2.87 M/uL (4.2-5.4)
[2020-06-10 05:11] LABS: BUN Creatinine Ratio 4.2 (10-20); Calcium 7.5 mg/dl (8.5-10.1); Creatinine Clr Calc Pharmacy 3.7 ml/min; Est GFR (African American) 4.2; Est GFR (Non-African American) 3.6; Potassium 3.3 mmol/L (3.5-5.1)
[2020-06-10] MEDS: LEVOTHYROXINE SODIUM 125 MCG TABLET PO SCH (06:40)
[2020-06-10] MEDS: ONDANSETRON INJ 2 MG/ML 2 ML VIAL IV PRN (07:38)
--- NOTE | 2020-06-10 07:44 | Surgery Progress Note ---
Date of Service June 10, 2020 Assessment & Plan (1) AAA (abdominal aortic aneurysm) without rupture: Patient doing well. Will transfer to floor and increase ambulation Probable discharge tomorrow Admission and Anticipated Discharge Date Admission Date: June 09, 2020 Subjective Patient complains of groin discomfort, otherwise no complaints Physical Exam Respiratory: no respiratory distress Cardiovascular: Rate/Rhythm: regular rate and regular rhythm Extremities: normal capillary refill Good pedal flow Gastrointestinal (Abdomen): Inspection/Auscultation: abdomen normal to inspection Percussion/Palpation: abdomen soft; abdomen nontender Skin: + incision (Puncture sites dry and clean) Results & Data ([facility]) Vital Signs (Past 12 Hours) Vital Signs Temp Pulse Resp BP Pulse Ox 06/10/20 06:15 71 18 92 06/10/20 06:00 70 18 121/60 93 06/10/20 05:45 71 20 93 06/10/20 05:30 69 18 89 L 06/10/20 05:15 68 18 94 06/10/20 05:00 69 17 130/54 L 94 06/10/20 04:45 68 23 95 06/10/20 04:30 70 24 95 06/10/20 04:15 69 20 95 06/10/20 04:00 36.9 C 71 16 129/59 L 94 06/10/20 03:45 73 18 96 06/10/20 03:30 70 21 95 06/10/20 03:15 71 18 94 06/10/20 03:00 72 18 142/64 H 96 06/10/20 02:45 72 19 95 06/10/20 02:30 71 19 96 06/10/20 02:15 72 16 98 06/10/20 02:00 72 16 139/68 97 06/10/20 01:45 72 17 96 06/10/20 01:30 72 33 H 97 06/10/20 01:15 69 16 96 06/10/20 01:01 71 15 145/55 H 97 06/10/20 01:00 73 15 97 06/10/20 00:45 74 21 97 06/10/20 00:30 70 19 97 06/10/20 00:15 71 19 97 06/10/20 00:01 71 16 116/51 L 96 06/10/20 00:00 37 C 71 18 97 06/09/20 23:45 72 22 96 06/09/20 23:30 69 20 98 06/09/20 23:15 71 14 98 06/09/20 23:01 70 23 156/52 H 97 06/09/20 23:00 70 15 97 06/09/20 22:45 72 17 98 06/09/20 22:30 71 16 97 06/09/20 22:15 70 14 97 06/09/20 22:01 71 20 155/59 H 98 06/09/20 22:00 70 15 98 06/09/20 21:45 69 17 96 06/09/20 21:30 70 21 96 06/09/20 21:15 71 22 95 06/09/20 21:10 68 19 169/70 H 97 06/09/20 21:01 70 15 172/72 H 99 06/09/20 21:00 70 18 100 06/09/20 20:45 70 14 99 06/09/20 20:30 71 18 97 06/09/20 20:15 69 19 98 06/09/20 20:00 71 15 184/46 H 98 06/09/20 19:45 69 15 97
[2020-06-10] MEDS: NEPHROCAPS PO SCH (08:08)
[2020-06-10] MEDS: PANTOprazole 40 MG TAB PO SCH (08:08)
[2020-06-10] MEDS: SEVELAMER HCL 800 MG TABLET PO SCH ×3 (08:08→17:26)
[2020-06-10] MEDS: CHOLECALCIFEROL 1,000 UNITS 25 MCG TAB PO SCH (08:08)
[2020-06-10] MEDS: APIXABAN 2.5 MG TAB PO SCH ×2 (08:08→19:30)
[2020-06-10] MEDS: LABETALOL HCL 200 MG TAB PO SCH ×2 (08:09→19:30)
[2020-06-10] MEDS: SERTRALINE HCL 50 MG TABLET PO SCH (08:09)
[2020-06-10] MEDS ORDERED: POTASSIUM CHLORIDE CRTAB 20 MEQ TABCR PO STA (08:32)
--- NOTE | 2020-06-10 08:56 | Anesthesiology Progress Note ---
Date of Service June 10, 2020 Anesthesia Post Procedure Vital Signs Vital Signs: Temp Pulse Pulse Resp BP BP BP 06/10/20 06:15 71 18 06/10/20 06:00 70 18 121/60 06/10/20 05:45 71 20 06/10/20 05:30 69 18 06/10/20 05:15 68 18 06/10/20 05:00 69 17 130/54 L 06/10/20 04:45 68 23 06/10/20 04:30 70 24 06/10/20 04:15 69 20 06/10/20 04:00 36.9 C 71 16 129/59 L 06/10/20 03:45 73 18 06/10/20 03:30 70 21 06/10/20 03:15 71 18 06/10/20 03:00 72 18 142/64 H 06/10/20 02:45 72 19 06/10/20 02:30 71 19 06/10/20 02:15 72 16 06/10/20 02:00 72 16 139/68 06/10/20 01:45 72 17 06/10/20 01:30 72 33 H 06/10/20 01:15 69 16 06/10/20 01:01 71 15 145/55 H 06/10/20 01:00 73 15 06/10/20 00:45 74 21 06/10/20 00:30 70 19 06/10/20 00:15 71 19 06/10/20 00:01 71 16 116/51 L 06/10/20 00:00 37 C 71 18 06/09/20 23:45 72 22 06/09/20 23:30 69 20 06/09/20 23:15 71 14 06/09/20 23:01 70 23 156/52 H 06/09/20 23:00 70 15 06/09/20 22:45 72 17 06/09/20 22:30 71 16 06/09/20 22:15 70 14 06/09/20 22:01 71 20 155/59 H 06/09/20 22:00 70 15 06/09/20 21:45 69 17 06/09/20 21:30 70 21 06/09/20 21:15 71 22 06/09/20 21:10 68 19 169/70 H 06/09/20 21:01 70 15 172/72 H 06/09/20 21:00 70 18 06/09/20 20:45 70 14 06/09/20 20:30 71 18 06/09/20 20:15 69 19 06/09/20 20:00 71 15 184/46 H 06/09/20 19:45 69 15 06/09/20 19:30 70 16 06/09/20 19:15 66 19 06/09/20 19:01 65 19 133/53 L 06/09/20 19:00 65 15 06/09/20 18:45 66 17 06/09/20 18:30 65 21 06/09/20 17:00 72 18 167/72 H 06/09/20 16:31 75 18 160/67 H 06/09/20 16:15 72 17 160/68 H 06/09/20 16:01 72 19 165/71 H 06/09/20 15:45 71 20 169/73 H 06/09/20 15:30 73 18 167/73 H 06/09/20 15:20 36.6 C 06/09/20 15:16 73 15 181/73 H 06/09/20 15:00 75 17 155/82 H 06/09/20 14:45 74 16 159/72 H 06/09/20 14:30 74 17 170/67 H 06/09/20 14:00 74 13 151/69 H 06/09/20 13:30 74 16 140/73 06/09/20 13:15 74 16 139/63 06/09/20 13:00 75 14 154/70 H 06/09/20 12:45 75 16 156/69 H 06/09/20 12:30 36.5 C 75 22 145/64 H 06/09/20 11:45 73 16 152/83 H 144/68 H 06/09/20 11:35 36.5 C 74 15 162/78 H 169/72 H 06/09/20 11:25 74 15 152/73 H 154/60 H 06/09/20 11:15 72 15 161/79 H 162/64 H 06/09/20 11:05 72 15 168/80 H 162/63 H 06/09/20 10:55 71 14 162/82 H 158/67 H 06/09/20 10:45 71 13 163/75 H 146/76 H 06/09/20 10:35 36.5 C 70 12 154/79 H 140/62 Pulse Ox 06/10/20 06:15 92 06/10/20 06:00 93 06/10/20 05:45 93 06/10/20 05:30 89 L 06/10/20 05:15 94 06/10/20 05:00 94 06/10/20 04:45 95 06/10/20 04:30 95 06/10/20 04:15 95 06/10/20 04:00 94 06/10/20 03:45 96 06/10/20 03:30 95 06/10/20 03:15 94 06/10/20 03:00 96 06/10/20 02:45 95 06/10/20 02:30 96 06/10/20 02:15 98 06/10/20 02:00 97 06/10/20 01:45 96 06/10/20 01:30 97 06/10/20 01:15 96 06/10/20 01:01 97 06/10/20 01:00 97 06/10/20 00:45 97 06/10/20 00:30 97 06/10/20 00:15 97 06/10/20 00:01 96 06/10/20 00:00 97 06/09/20 23:45 96 06/09/20 23:30 98 06/09/20 23:15 98 06/09/20 23:01 97 06/09/20 23:00 97 06/09/20 22:45 98 06/09/20 22:30 97 06/09/20 22:15 97 06/09/20 22:01 98 06/09/20 22:00 98 06/09/20 21:45 96 06/09/20 21:30 96 06/09/20 21:15 95 06/09/20 21:10 97 06/09/20 21:01 99 06/09/20 21:00 100 06/09/20 20:45 99 06/09/20 20:30 97 06/09/20 20:15 98 06/09/20 20:00 98 06/09/20 19:45 97 06/09/20 19:30 98 06/09/20 19:15 96 06/09/20 19:01 98 06/09/20 19:00 96 06/09/20 18:45 98 06/09/20 18:30 96 06/09/20 17:00 97 06/09/20 16:31 98 06/09/20 16:15 97 06/09/20 16:01 99 06/09/20 15:45 99 06/09/20 15:30 98 06/09/20 15:20 06/09/20 15:16 98 06/09/20 15:00 98 06/09/20 14:45 94 06/09/20 14:30 97 06/09/20 14:00 97 06/09/20 13:30 97 06/09/20 13:15 94 06/09/20 13:00 96 06/09/20 12:45 94 06/09/20 12:30 97 06/09/20 11:45 96 06/09/20 11:35 95 06/09/20 11:25 95 06/09/20 11:15 98 06/09/20 11:05 98 06/09/20 10:55 100 06/09/20 10:45 100 06/09/20 10:35 96 Pain Intensity Bilateral Groin: Pain Intensity: 4 Notes Mental Status: alert / awake / arousable and participated in evaluation Nausea / Vomiting: adequately controlled Pain: adequately controlled Airway Patency, RR, SpO2: stable & adequate BP & HR: stable & adequate Hydration State: stable & adequate
--- NOTE | 2020-06-10 09:08 | Critical Care Progress Note ---
Date of Service June 10, 2020 Assessment & Plan (1) Admitted to intensive care unit: --Abdominal aortic aneurysm s/p repair Maintain systolic blood pressure less than 150 Monitor H&H Monitor for bilateral lower extremity pulses Pain medication Vascular on board --Hypertension Continue with home medication Add amlodipine if need be --History of A. fib On apixaban --End-stage renal disease On hemodialysis Nephrology on board --Hypothyroidism Continue with levothyroxine --GERD Continue with pantoprazole --Hypokalemia Being replaced --Prophylaxis VTE: Apixaban GI: Pantoprazole Lines: Peripheral Diet: Cardiorenal Plan: In/out: +1525, urine output 30 DC arterial line. Repeat H&H at 12 Give 40 mEq of potassium. Patient is for hemodialysis later today. Hemodynamically stable to be sent out of the ICU. Please note the above document was generated using voice recognition software. It may contain grammatical, syntax or spelling errors.Any formal questions or concerns about the content, text or information contained within the body of this dictation should be directly addressed to the provider for clarification. (2) Hypertension: (3) AAA (abdominal aortic aneurysm) without rupture: (4) End stage renal disease: Admission and Anticipated Discharge Date Admission Date: June 09, 2020 Subjective Patient seen and examined at bedside. No acute distress, noted with symptoms overnight. Complains of mild nausea today. Did not have an appetite during breakfast. Denies any chest pain, no shortness of breath, no headache, no nausea, no vomiting. Does complain of mild pain in the belly and in the right groin. Positive bowel movement. No hematuria, no hematochezia Review of Systems Review of Systems: All systems reviewed & are unremarkable except as noted in Subjective Physical Exam Physical Exam: Constitutional: No acute distress HEENT: EOMI, PERRLA Respiratory system: Decreased air entry bilaterally, positive crackles bilateral lower lobes, no wheeze, no rhonchi CVS: S1-S2 positive, positive 3 out of 6 systolic murmur appreciated best at the aorta Abdomen: Soft, nontender, nondistended, positive bowel sounds x4 Extremities: +2 pulses bilaterally radialis/ dorsalis pedis, no cyanosis, no edema Neuro: Awake alert oriented x3 Psych: Normal mood and affect G/U: Positive [place] Skin: no rashes, warm and dry Lymphatic: no cervical or axillary lymphadenopathy Results & Data Results & Data ([facility]) Vital Signs (Past 12 Hours) Vital Signs Temp Pulse Resp BP Pulse Ox 06/10/20 06:15 71 18 92 06/10/20 06:00 70 18 121/60 93 06/10/20 05:45 71 20 93 06/10/20 05:30 69 18 89 L 06/10/20 05:15 68 18 94 06/10/20 05:00 69 17 130/54 L 94 06/10/20 04:45 68 23 95 06/10/20 04:30 70 24 95 06/10/20 04:15 69 20 95 06/10/20 04:00 36.9 C 71 16 129/59 L 94 06/10/20 03:45 73 18 96 06/10/20 03:30 70 21 95 06/10/20 03:15 71 18 94 06/10/20 03:00 72 18 142/64 H 96 06/10/20 02:45 72 19 95 06/10/20 02:30 71 19 96 06/10/20 02:15 72 16 98 06/10/20 02:00 72 16 139/68 97 06/10/20 01:45 72 17 96 06/10/20 01:30 72 33 H 97 06/10/20 01:15 69 16 96 06/10/20 01:01 71 15 145/55 H 97 06/10/20 01:00 73 15 97 06/10/20 00:45 74 21 97 06/10/20 00:30 70 19 97 06/10/20 00:15 71 19 97 06/10/20 00:01 71 16 116/51 L 96 06/10/20 00:00 37 C 71 18 97 06/09/20 23:45 72 22 96 06/09/20 23:30 69 20 98 06/09/20 23:15 71 14 98 06/09/20 23:01 70 23 156/52 H 97 06/09/20 23:00 70 15 97 06/09/20 22:45 72 17 98 06/09/20 22:30 71 16 97 06/09/20 22:15 70 14 97 06/09/20 22:01 71 20 155/59 H 98 06/09/20 22:00 70 15 98 06/09/20 21:45 69 17 96 06/09/20 21:30 70 21 96 06/09/20 21:15 71 22 95 06/09/20 21:10 68 19 169/70 H 97 06/10/20 04:04 06/10/20 04:04 Coding Level of Care Code 37520 Subseq Hosp Care Lvl 3 Diagnoses Admitted to intensive care unit Z78.9 Hypertension I10 AAA (abdominal aortic aneurysm) without rupture I71.4 End stage renal disease N18.6
[2020-06-10 12:25] LABS: Hematocrit (blood only) 28.7 % (37-47); Hemoglobin 9.3 g/dL (12.0-16.0)
--- NOTE | 2020-06-10 16:29 | Nephrology Progress Note ---
Date of Service June 10, 2020 Assessment & Plan (1) End stage renal disease: Orders for CCPD entered into the EMR per home schedule. BP and volume status acceptable. Metabolic profile notable for hypokalemia which is being replaced. 1.5% dextrose x 4 exchanges with 2.5 L and 90 minute dwell. No last fill. (2) Hypertension: BP appropriate. Continue labetalol as Rx'd. (3) Chronic kidney disease-mineral and bone disorder: Renvela QAC while inpatient. May hold Sensipar during hospitalization. (4) AAA (abdominal aortic aneurysm) without rupture: POD# 1 s/p endovascular repair without complications. I discussed the plan of care with Dr. Maurice this AM. (5) Admitted to intensive care unit: Admission and Anticipated Discharge Date Admission Date: June 09, 2020 Ba Richardson was seen and evaluated this morning. She feels well. No complaints or concerns today. Additional potassium supplementation provided. Review of Systems Review of Systems: All systems reviewed & are unremarkable except as noted in HPI & below Physical Exam Constitutional: well developed; no acute distress Eyes: + anicteric sclerae; no corneal abnormality ENMT: Mouth: no oral mucosal abnormality and oral mucous membranes not dry Neck: normal visual inspection and trachea midline Respiratory: normal respiratory effort Auscultation: lungs clear to auscultation bilaterally Cardiovascular: Rate/Rhythm: regular rate Heart Sounds: normal S1 and normal S2 Extremities: no edema Gastrointestinal (Abdomen): Percussion/Palpation: abdomen soft; abdomen nontender Musculoskeletal: Extremities: no cyanosis and no clubbing Skin: normal turgor; no lesions Neurologic: Motor/Sensory: no tremor and no asterixis Psychiatric: Orientation: alert and oriented x 3 Results & Data ([facility]) Vital Signs (Past 12 Hours) Vital Signs Temp Pulse Pulse Resp BP BP Pulse Ox 06/10/20 16:12 36.4 C L 64 16 142/66 H 97 06/10/20 15:34 36.9 C 64 16 127/64 95 06/10/20 09:00 64 16 128/62 95 06/10/20 08:01 67 21 121/45 L 06/10/20 08:00 36.6 C 68 06/10/20 07:00 69 17 138/64 93 06/10/20 06:15 71 18 92 06/10/20 06:00 70 18 121/60 93 06/10/20 05:45 71 20 93 06/10/20 05:30 69 18 89 L 06/10/20 05:15 68 18 94 06/10/20 05:00 69 17 130/54 L 94 06/10/20 04:45 68 23 95 06/10/20 04:30 70 24 95 Laboratory Results Laboratory Results - last 24 hr 06/09/20 06/09/20 06/10/20 17:33 17:33 02:16 WBC RBC Hgb 9.8 L Hct 29.7 L MCV MCH MCHC RDW Std Deviation RDW Coeff of Zaid Plt Count MPV Immature Gran % (Auto) Neut % (Auto) Lymph % (Auto) [place]min[place] % (Auto) Eos % (Auto) Baso % (Auto) Neut # (Auto) Lymph # (Auto) [place] # (Auto) Eos # (Auto) Baso # (Auto) Immature Gran # (Auto) Sodium 132 L Potassium 3.8 D Chloride 101 Carbon Dioxide 23 Anion Gap 8.0 BUN 34 H Creatinine 8.47 H* D Est Cr Clr Drug Dosing 4.0 Est GFR ( Amer) 4.6 Est GFR (Non-Af Amer) 4.0 BUN/Creatinine Ratio 4.0 L Glucose 122 H POC Glucose 100 H Calcium 7.7 L AST ALT 06/10/20 06/10/20 06/10/20 04:04 04:04 06:37 WBC 8.60 RBC 2.87 L Hgb 8.4 L Hct 26.2 L MCV 91.3 MCH 29.3 MCHC 32.1 RDW Std Deviation 47.5 H RDW Coeff of Zaid 14.6 H Plt Count 228 MPV 9.8 Immature Gran % (Auto) 0.2 Neut % (Auto) 60.6 Lymph % (Auto) 24.2 [place]minn % (Auto) 13.8 Eos % (Auto) 0.7 Baso % (Auto) 0.5 Neut # (Auto) 5.21 Lymph # (Auto) 2.08 Mcminn # (Auto) 1.19 H Eos # (Auto) 0.06 Baso # (Auto) 0.04 Immature Gran # (Auto) 0.02 Sodium 135 L Potassium 3.3 L Chloride 101 Carbon Dioxide 24 Anion Gap 10.0 BUN 39 H Creatinine 9.15 H* D Est Cr Clr Drug Dosing 3.7 Est GFR ( Amer) 4.2 Est GFR (Non-Af Amer) 3.6 BUN/Creatinine Ratio 4.2 L Glucose 81 POC Glucose 91 Calcium 7.5 L AST 18 ALT 9 L 06/10/20 12:07 WBC RBC Hgb 9.3 L Hct 28.7 L MCV MCH MCHC RDW Std Deviation RDW Coeff of Zaid Plt Count MPV Immature Gran % (Auto) Neut % (Auto) Lymph % (Auto) [place]min[place] % (Auto) Eos % (Auto) Baso % (Auto) Neut # (Auto) Lymph # (Auto) Mcminn # (Auto) Eos # (Auto) Baso # (Auto) Immature Gran # (Auto) Sodium Potassium Chloride Carbon Dioxide Anion Gap BUN Creatinine Est Cr Clr Drug Dosing Est GFR ( Amer) Est GFR (Non-Af Amer) BUN/Creatinine Ratio Glucose POC Glucose Calcium AST ALT PG Care Time/CCT Total # of Minutes Spent Total Time Spent with Patient: Total time spent is greater than 50% in coordination of care (as documented) at patient's floor/unit and/or counseling patient: Coding Level of Care Code 97548 Subseq Hosp Care Lvl 3 Diagnoses End stage renal disease N18.6 Hypertension I10 Chronic kidney disease-mineral and bone disorder N18.9; E83.9; M89.9 AAA (abdominal aortic aneurysm) without rupture I71.4 Admitted to intensive care unit Z78.9
[2020-06-10 17:25] LABS: Hepatitis B Surface Ab Quant 6.46 mIU/mL (>or=10mIU/mL Immune); Hepatitis B Surface Antibody Non-Immune
[2020-06-10 17:36] LABS: Hepatitis B Surface Antigen Neg (Neg)
[2020-06-11] MEDS: LEVOTHYROXINE SODIUM 125 MCG TABLET PO SCH (06:16)
[2020-06-11 06:20] LABS: Basophils # (auto) 0.03 K/uL (0-0.2); Basophils % (auto) 0.4 %; Eosinophils # (auto) 0.11 K/uL (0-0.5); Eosinophils % (auto) 1.3 %; Hematocrit (blood only) 29.1 % (37-47); Hemoglobin 9.5 g/dL (12.0-16.0); Immature Granulocytes # (auto) 0.02 K/uL (0.00-0.02); Immature Granulocytes % (auto) 0.2 %; Lymphocytes # (auto) 1.51 K/uL (1.2-3.4); Lymphocytes % (auto) 18.2 %; Mean Corpuscular Hemoglobin 29.8 pg (25-34); Mean Corpuscular Hgb Conc 32.6 g/dL (32-36); Mean Corpuscular Volume 91.2 fL (80-100); Mean Platelet Volume 9.7 fL (7.4-10.4); Monocytes # (auto) 1.03 K/uL (0.11-0.59); Monocytes % (auto) 12.4 %; Neutrophils # (auto) 5.61 K/uL (1.4-6.5); Neutrophils % (auto) 67.5 %; Platelet Count 229 K/uL (130-400); RDW Coefficient of Variation 15.2 % (11.5-14.5); RDW Standard Deviation 48.8 fL (36.4-46.3); Red Blood Count 3.19 M/uL (4.2-5.4); White Blood Count 8.31 K/uL (4.8-10.8)
[2020-06-11 07:07] LABS: Calcium 8.1 mg/dl (8.5-10.1); Creatinine Clr Calc Pharmacy 3.8 ml/min; Est GFR (African American) 4.2; Est GFR (Non-African American) 3.6; Potassium 3.3 mmol/L (3.5-5.1)
[2020-06-11] MEDS: SEVELAMER HCL 800 MG TABLET PO SCH ×2 (08:41→10:02)
[2020-06-11] MEDS: CHOLECALCIFEROL 1,000 UNITS 25 MCG TAB PO SCH (08:41)
[2020-06-11] MEDS: LABETALOL HCL 200 MG TAB PO SCH (08:41)
[2020-06-11] MEDS: APIXABAN 2.5 MG TAB PO SCH (08:41)
[2020-06-11] MEDS: SERTRALINE HCL 50 MG TABLET PO SCH (08:41)
[2020-06-11] MEDS: PANTOprazole 40 MG TAB PO SCH (08:42)
[2020-06-11] MEDS: NEPHROCAPS PO SCH (08:42)
[2020-06-11] MEDS ORDERED: [UNRECOGNIZED DRUG - OTHER] PO ONE (09:00)
--- NOTE | 2020-06-11 09:15 | Surgery Progress Note ---
Date of Service June 11, 2020 Assessment & Plan (1) AAA (abdominal aortic aneurysm) without rupture: Patient doing well. She will be discharged today to self-care at home. We will see her in the office in 2 weeks for follow-up. Admission and Anticipated Discharge Date Admission Date: June 09, 2020 Subjective This patient is awake and alert and sitting up in bed eating breakfast. She still complains some mild groin and sacral pain from being in bed. Physical Exam Gastrointestinal (Abdomen): Inspection/Auscultation: abdomen normal to inspection Percussion/Palpation: abdomen soft; abdomen nontender Skin: + incision (puncture sites dry and clean, no hematomas noted) Results & Data ([facility]) Vital Signs (Past 12 Hours) Vital Signs Temp Pulse Pulse Pulse Resp BP BP 06/11/20 08:21 37.2 C 73 66 66 16 06/11/20 07:20 37.2 C 66 16 135/62 06/11/20 03:47 36.4 C L 66 14 123/54 L 06/10/20 23:55 37.3 C 65 14 143/54 H 06/10/20 22:56 37.2 C 66 18 148/66 H Pulse Ox 06/11/20 08:21 06/11/20 07:20 97 06/11/20 03:47 95 06/10/20 23:55 95 06/10/20 22:56
[2020-06-11] MEDS: oxyCODONE/ACETAMINOPHEN 5mg/325mg TAB PO PRN (09:59)
[2020-06-11] MEDS: ONDANSETRON INJ 2 MG/ML 2 ML VIAL IV PRN (10:04)
--- NOTE | 2020-06-11 11:17 | Operative Report ---
Post Operative Report Pre & Post Diagnosis Operation Date: 05/14/20 08:50 <No data on this case meets the specified criteria> Operation Date: 06/09/20 08:00 <No data on this case meets the specified criteria> Operation Date: 06/09/20 08:00 Pre-Op Diagnosis: Abdominal Aortic Aneurysm Post-Op Diagnosis: Abdominal Aortic Aneurysm I identified the patient and participated in the time-out.: Yes Procedure Operation Date: 05/14/20 08:50 <No data on this case meets the specified criteria> Operation Date: 06/09/20 08:00 <No data on this case meets the specified criteria> Operation Date: 06/09/20 08:00 Actual Procedures p Percutaneous Endovascular Aneurysm Repair, Bilateral Percutaneous Groin Acess(Bilateral) - Enrrique Maurice MD Surgeon Enrrique Maurice MD Aerial Crop Duster Hallie,PAC Estimated Blood Loss 30 Findings Consistent with Post-Op Diagnosis Specimens None Anesthesia Type MAC Complications none Disposition Accompanied Patient To Recovery: No Disposition: Recovery Room Indications This is an 80-year-old female with enlarging abdominal aortic aneurysm. Is 5.2 cm in size at this point. Repair was recommended. She was a candidate for endovascular repair. I have discussed the risks options and benefits of the procedure with the patient. The patient understands the risks options and benefits and agrees to the procedure. Description of Procedure The patient was taken to the operating room and placed in the supine position. The abdomen and groins were then prepped and draped in a sterile manner. The patient was identified and a timeout was performed. Local anesthetic was then administered to the right groin. Percutaneous puncture was made in the right common femoral artery. 5 Spanish sheath was inserted. Injection of contrast showed the puncture to be in the common femoral artery. To pro glide devices were inserted and the artery was preclosed. The sutures were Steri-Stripped to the drapes. An 8 Spanish sheath was then inserted. The left side local anesthetic was then again administered. Percutaneous puncture was made of the left common femoral artery. A 5 Spanish sheath was inserted. Again another hand-injection was performed showing the sheath to be in the common femoral artery. The side was also preclosed with 2 Pro-glide devices. 8 Spanish sheath was then inserted. 035 Glidewire was inserted through the sheath on the left side. This was passed up into the abdominal aorta. Kumpe catheter was then inserted and the wire exchanged to a Vitale wire. Same procedures on the right side. Once the Vitale wire was were in place the 8 Spanish sheath in the left groin was upsized to a 12 Spanish [place] sheath right. Right side was then upsized to an 16 Spanish sheath. A pigtail was inserted through the left groin into the suprarenal aorta. A 23 x 12 x 16 main body excluder graft was inserted through the right side. Arteriography was then performed to jhonny the renal arteries. Renal arteries were easily seen. The device was in position right below the renal arteries and deployed. Another injection done at this time show the deployment to be slightly higher than I would like covering portion of the right renal. We then retracted the upper portion of the graft and pulled it down slightly. It was then redeployed. Another angio done showed the graft to be right at the lower margin of the renal arteries. The hooks were then deployed. The pigtail was pulled back as well as a 12 Spanish sheath. Using a guidewire and a Kumpe catheter the gate was cannulated. Kumpe was advanced up to the shaft of the graft. It spun around easily and was found to be true lumen. The Vitale wire was inserted. Pigtail was inserted over the wire and a 12 Spanish sheath was then pulled down below the left internal iliac. Using an oblique view hand-injection was done to show the iliac bifurcation. The study is a 12 x 12 contralateral limb. The pigtail was removed the dilator was then reinserted through 12 Spanish sheath and 12 Spanish sheath advanced up to the gait and into the gait. The 16 Spanish sheath in the right groin was pulled down. An injection was performed showing the distal end of the graft to be slightly over the origin of the internal iliac. The right limb was then deployed with pushing the graft up slightly. After this was done the 12 x 12 contralateral limb was inserted. This was then deployed without difficulty. Using a Q50 balloon the all the attachment sites and overlaps of then ballooned. After this was completed the pigtail was reinserted through the left side. Arteriogram was performed showing the graft to be widely patent. Internal iliacs are patent on both sides. There was a type II endoleak present Juan lyle in the lower part of the sacrum all lumbar vessels. No type I leak was noted. At that point the 12 Spanish sheath was pulled from the left groin after reinserting a wire and removing the pigtail. The Pro-glide devices were tied without difficulty. Adequate hemostasis was noted. Veronika powder was then applied to the wound. The right groin sheath was then also pulled. Given Pro-glide devices were tied on the right side. Adequate hemostasis was noted. Veronika powder was also used in this groin. Again adequate hemostasis was noted of both groins. Pressure dressings were applied.The patient left the operation room in satisfactory condition and tolerated the procedure well. All needle and sponge counts were correct at the end of the procedure. Evie Perry Pac assisted due to lack of resident availability and was necessary for positioning, draping, retraction, wound closure deep layers, subcutaneous tissue, and skin closure and was necessary for assisting with the case. I attest to the content of the Intraoperative Record and any orders documented therein. Any exceptions are noted below.
--- NOTE | 2020-06-11 11:29 | Nephrology Progress Note ---
Date of Service June 11, 2020 Assessment & Plan (1) End stage renal disease: No complications with treatment. Adequate UF. Volume status euvolemic. Site site care provided. Debra will resume home Rx post discharge and follow up with Dr. Keyes as scheduled. Potassium slightly low but acceptable. (2) Hypertension: BP appropriate. Continue labetalol as Rx'd. (3) Chronic kidney disease-mineral and bone disorder: Renvela QAC while inpatient. May hold Sensipar during hospitalization. (4) AAA (abdominal aortic aneurysm) without rupture: POD# 2 s/p endovascular repair without complications. I discussed the plan of care with Dr. Maurice this AM. Admission and Anticipated Discharge Date Admission Date: June 09, 2020 Subjective No acute events overnight. No complications with PD. Debra tolerated CCPD well. Effluent clear. Net UF 900 ml. Review of Systems Review of Systems: All systems reviewed & are unremarkable except as noted in HPI & below Physical Exam Constitutional: well developed; no acute distress Eyes: + anicteric sclerae; no corneal abnormality ENMT: Mouth: no oral mucosal abnormality and oral mucous membranes not dry Neck: normal visual inspection and trachea midline Respiratory: normal respiratory effort Auscultation: lungs clear to auscultation bilaterally Cardiovascular: Rate/Rhythm: regular rate Heart Sounds: normal S1 and normal S2 Extremities: no edema Gastrointestinal (Abdomen): Percussion/Palpation: abdomen soft; abdomen nontender PD catheter with clean exit site. Musculoskeletal: Extremities: no cyanosis and no clubbing Skin: normal turgor; no lesions Neurologic: Motor/Sensory: no tremor and no asterixis Psychiatric: Orientation: alert and oriented x 3 Results & Data ([facility]) Vital Signs (Past 12 Hours) Vital Signs Temp Pulse Pulse Pulse Resp BP BP 06/11/20 08:21 37.2 C 73 66 66 16 06/11/20 07:20 37.2 C 66 16 135/62 06/11/20 03:47 36.4 C L 66 14 123/54 L 06/10/20 23:55 37.3 C 65 14 143/54 H Pulse Ox 06/11/20 08:21 06/11/20 07:20 97 06/11/20 03:47 95 06/10/20 23:55 95 Laboratory Results Laboratory Results - last 24 hr 06/10/20 06/10/20 06/11/20 12:07 16:36 05:45 WBC 8.31 RBC 3.19 L Hgb 9.3 L 9.5 L Hct 28.7 L 29.1 L MCV 91.2 MCH 29.8 MCHC 32.6 RDW Std Deviation 48.8 H RDW Coeff of Zaid 15.2 H Plt Count 229 MPV 9.7 Immature Gran % (Auto) 0.2 Neut % (Auto) 67.5 Lymph % (Auto) 18.2 [place] % (Auto) 12.4 Eos % (Auto) 1.3 Baso % (Auto) 0.4 Neut # (Auto) 5.61 Lymph # (Auto) 1.51 [place] # (Auto) 1.03 H Eos # (Auto) 0.11 Baso # (Auto) 0.03 Immature Gran # (Auto) 0.02 Sodium Potassium Chloride Carbon Dioxide Anion Gap BUN Creatinine Est Cr Clr Drug Dosing Est GFR ( Amer) Est GFR (Non-Af Amer) BUN/Creatinine Ratio Glucose Calcium Hep Bs Antigen Neg Hep Bs Antibody Non-Immune Hep Bs Antibody, Quant 6.46 L 06/11/20 05:45 WBC RBC Hgb Hct MCV MCH MCHC RDW Std Deviation RDW Coeff of Zaid Plt Count MPV Immature Gran % (Auto) Neut % (Auto) Lymph % (Auto) [place] % (Auto) Eos % (Auto) Baso % (Auto) Neut # (Auto) Lymph # (Auto) [place] # (Auto) Eos # (Auto) Baso # (Auto) Immature Gran # (Auto) Sodium 134 L Potassium 3.3 L Chloride 97 L Carbon Dioxide 24 Anion Gap 13.0 H BUN 36 H Creatinine 9.07 H* Est Cr Clr Drug Dosing 3.8 Est GFR ( Amer) 4.2 Est GFR (Non-Af Amer) 3.6 BUN/Creatinine Ratio 4.0 L Glucose 123 H Calcium 8.1 L Hep Bs Antigen Hep Bs Antibody Hep Bs Antibody, Quant PG Care Time/CCT Total # of Minutes Spent Total Time Spent with Patient: Total time spent is greater than 50% in coordination of care (as documented) at patient's floor/unit and/or counseling patient: Coding Level of Care Code 30939 Subseq Hosp Care Lvl 3 Diagnoses End stage renal disease N18.6 Hypertension I10 Chronic kidney disease-mineral and bone disorder N18.9; E83.9; M89.9 AAA (abdominal aortic aneurysm) without rupture I71.4
--- NOTE | 2020-06-16 13:03 | Discharge Summary ---
Date of Service June 16, 2020 Admission HPI Per Admitting Provider As you know she is an 80-year-old white female on peritoneal dialysis. She was found to have a abdominal aortic aneurysm which is enlarged over the last 2 years. Ultrasound showed it to be 5.3. She had a CT angiogram done at [facility]. This was read as 4.8 cm abdominal aortic aneurysm however when looking at the films and doing the measurements the largest diameter of the sac is actually 5.3 x 5.3. Admission Exam Per Admitting Provider She is well-appearing, well-nourished, in no acute distress. She is breathing comfortably on room air. Lungs are clear. Her heart has a regular rate and rhythm. Her abdomen is soft, nontender and nondistended. There is a palpable pulsatile abdominal mass. This is nontender. There is a PD catheter in place. Her bilateral femoral pulses are palpable. Her bilateral dorsalis pedis pulses are palpable bilaterally. Her motor and sensory examinations of the bilateral upper and lower extremities are grossly intact. Principal Diagnosis 1. s/p PEVAR 2. AAA Discharge Exam Respiratory no respiratory distress Cardiovascular Rate/Rhythm: regular rate and regular rhythm Extremities: normal capillary refill Gastrointestinal (Abdomen) Inspection/Auscultation: abdomen normal to inspection Percussion/Palpation: abdomen soft; abdomen nontender Skin + incision (puncture sites dry and clean, no hematomas noted) Discharge Data Allergies Allergy/AdvReac Type Severity Reaction Status Date / Time amlodipine [From Norvasc] Allergy Mild leg and Verified 06/09/20 07:08 hand swelling clonidine Allergy Mild hallucinati Verified 06/09/20 07:08 on niacin Allergy Mild Hives Verified 06/09/20 07:08 procaine [From Novocain] Allergy Mild increase Verified 06/09/20 07:08 blood pressure and heart races Rylzmwr-Zfv-Skn Reductase Allergy Mild pain in Verified 06/09/20 07:08 Inhibitor muscles Sulfa (Sulfonamide Allergy Mild Nausea Verified 06/09/20 07:08 Antibiotics) promethazine [From Phenergan] Allergy Unknown Confusion/word Verified 06/09/20 07:08 slurring contrast dye Allergy Mild chest pain Uncoded 06/09/20 07:08 and sob, rapid heart beat Consultations 06/09/20 12:20 Consult Bedspring Assembler Routine Consult Nephrology Routine Procedures Performed Operation Date: 05/14/20 08:50 <No data on this case meets the specified criteria> Operation Date: 06/09/20 08:00 <No data on this case meets the specified criteria> Operation Date: 06/09/20 08:00 Actual Procedures p Percutaneous Endovascular Aneurysm Repair, Bilateral Percutaneous Groin Acess(Bilateral) - Enrrique aMurice MD Ordered Studies 06/09/20 07:14 EV Angio Abdomen Aorta Routine Hospital Course (1) AAA (abdominal aortic aneurysm) without rupture: Patient doing well POD #2. She will be discharged today to self-care at home. We will see her in the office in 2 weeks for follow-up. Total Time Total Time Spent Total Time Spent (In Minutes): 0 Discharge Plan Discharge Items Patient Disposition: Home - Self-Care Reason For Visit: Abdominal Aortic Aneurysm Discharge Diagnosis: Abdominal aortic aneurysm Activity: Per Instructions section Bathing Comment: May shower. Exercise/Sports: Gradually increase as tolerated Weightbearing: Full weightbearing Non-emergency contact: Surgeon Call non-emergency contact if: your temperature is above 101.5, your wound has increased redness, your wound has increased drainage and your wound pain has increased Follow-up/Referrals: Enrrique Maurice MD [Physician] - 06/24/20 12:45 pm Jorge Keyes MD [Primary Care Provider] - Diet: Dialysis Renal and Heart Healthy Addtl Attending Provider Instructions: SPECIAL CARE INSTRUCTIONS: Medications: * Continue to take your medications as directed. Incision/Puncture Site Care: * You will have an incision or puncture in each of your groins. Liquid glue will be used to seal your incisions/puncture site. This will lift off as the incisions/puncture sites heal. * If Liquid glue is not used, there will be small dressings covering your incisions. After you get home, you may remove the dressings and shower - allowing the warm soapy water to run over it. * Be sure to dry the sites well and keep them dry. * DO NOT SOAK IN A TUB/POOL/etc. UNTIL ALL SURGICAL SITES ARE HEALED. DO NOT REMOVE THE GLUE UNTIL THE INCISIONS HEAL. Restrictions: * Limit yourself to speech language therapist activity for the first week. * You may walk and go up and down steps. * Avoid excessive bending or movement at the level of the incisions or punctures. Risks and Possible Complications: * Infection/Drainage/Bleeding - Drainage or bleeding from the incisions/puncture site should be minimal. If you have excessive bleeding or drainage, call our office ([phone]) right away. * Pain/Numbness - You may experience some mild pain or soreness at your incision sites. You may also have some numbness around the incisions or into the insides of your thighs. Bruising is normal and should resolve within 2 weeks. * Changes in Appetite or Bowel Habits - Mostly related to anesthesia and pain medication, some patients have reported decreased appetite and/or problems with constipation. These symptoms usually improve over a few weeks. Remembering to take an [id number] stool softener, as directed, will help you to avoid constipation. Call our office and seek emergent treatment if you develop: * Fever or chills * Have a temperature greater than 101 degrees F * Any redness or purulent drainage from your incisions or punctures * Severe abdominal, chest or back pain SKIN IRRITATION: * You may experience some redness and/or swelling in the area where radiation was administered. If any skin irritation occurs, please contact your family physician. You will be receiving a call from the Vascular Surgery Nurse after you are discharged. FOLLOW UP VISIT: It is important for you to keep your follow up appointments with your medical provider. Keep any scheduled doctor appointments. Call [phone] to schedule a follow up appointment if one not already scheduled. Pending Studies at Discharge: No Stand-Alone Forms: [facility], Opioid Pain Management, Smoking Cessation Medications and DC Order Prescriptions: New oxycodone-acetaminophen [Percocet] 5-325 mg tablet 1 tab PO Q8H PRN (Reason: pain) Qty: 20 RF: 0 Continued labetalol 200 mg Tablet 200 mg PO BID RF: 0 ondansetron HCl [Zofran] 4 mg Tablet 4 mg PO Q6H PRN (Reason: Nausea) RF: 0 temazepam 15 mg Capsule 15 mg PO HS PRN (Reason: Sleep) RF: 0 colesevelam [WelChol] 625 mg Tablet 1,250 mg PO BID RF: 0 pantoprazole [Protonix] 40 mg Tablet,Delayed Release (Dr/Ec) 40 mg PO QAM RF: 0 levothyroxine 125 mcg Tablet 125 mcg PO QAM RF: 0 nitroglycerin [Nitrostat] 0.4 mg Tablet, Sublingual 0.4 mg buccal UD RF: 0 sertraline [Zoloft] 50 mg Tablet 50 mg PO QAM RF: 0 cholecalciferol (vitamin D3) [Vitamin D3] 25 mcg (1,000 unit) Capsule 25 mcg PO QAM RF: 0 B-complex with vitamin C Tablet 1 tab PO QAM RF: 0 cinacalcet [Sensipar] 60 mg Tablet 60 mg PO QAM RF: 0 sevelamer carbonate [Renvela] 800 mg Tablet 2,400 mg PO BIDM RF: 0 Eliquis 2.5 mg Tablet 2.5 mg PO BID RF: 0 sucroferric oxyhydroxide 500 mg Tablet,Chewable 500 mg PO UD RF: 0 Discharge Orders: Discharge Order (Routine); Ordered 06/11/20 Ordered By: Enrrique Garcia/Other Patient Handouts: DVT Post Op Prevention Admission Data Admit Date/Time: 06/09/20 07:24 Attending Provider: Enrrique Maurice Admit Provider: Enrrique Maurice Primary Care Provider: Jorge Keyes Other Providers: Sanya Blanton ; Mk Bloom ; Jayme Gaytan ; Aleks Nathan ; Ramon Ayala ; Bill Dawson ; Daphne Sellers ; Laurita Quan ; Dwight Narayanan ; Dustin Victoria ; Inga Forbes ; Han Argueta Other Interventions: Discharge Summary Assessment (RN) Last Done: 06/11/20 10:24
== END 2020-06-11 12:55 | disposition home or self-care (01) | DRG 268 ==
LOC: ASU 06:35 → 1E 07:24 → 3N 06-10 10:47